=== PATIENT | female | born 2000 | race Two or more races ===

== ENCOUNTER 2021-03-04 01:16 | Emergency (ER) | payer OTHER ==
[~2021-03-04] VITALS: Ht 154.9 cm; Wt 77.6 kg
--- NOTE | 2021-03-04 01:28 | NUR ---
Patient ambulated to ER with c/o mechanical fall at work 2 hours [employer]. Patient states she has pain on whole left side of body, PL:05/26. A/O x4, no SOB or labored breathing. Afebrile. No c/o chest pain/pressure. Denies any GI/ distress.
--- NOTE | 2021-03-04 01:31 | NUR ---
Josh Bejarano at bedside, MSE in progress.
[2021-03-04] MEDS ORDERED: ONDANSETRON ODT 4 MG TAB.RAPDIS ONE (01:43)
[2021-03-04] MEDS ORDERED: HYDROCODONE/APAP 5-325MG TABLET ONE (01:43)
[2021-03-04] MEDS ORDERED: ONDANSETRON ODT 4 MG TAB.RAPDIS SL ONE (01:45)
[2021-03-04] MEDS ORDERED: HYDROCODONE/APAP 5-325MG TABLET PO ONE (01:45)
--- NOTE | 2021-03-04 01:50 | NUR ---
Pt being taken down for xray.
--- NOTE | 2021-03-04 02:15 | NUR ---
Pt returned from xray, stable condition.
[2021-03-04] MEDS ORDERED: HYDR-4209 PO (02:36)
--- NOTE | 2021-03-04 02:44 | NUR ---
Patient discharged to home in stable condition. A/O x4, no SOB or labored breathing. Afebrile. NO c/o pain, medications noted to be effective. Written and verbal after care instructions given. Patient verbalizes understanding of instructions. Stressed follow up or return to ER for worsening s/s. Steady gait. Picked up by family member.
[2021-03-04 02:46] VITALS: BP 119/69
== END 2021-03-04 02:47 | disposition home or self-care (01) ==
LOC: ER 01:21
DX: S20.212A Contusion of left front wall of thorax, initial encounter (principal); S70.02XA Contusion of left hip, initial encounter; S50.12XA Contusion of left forearm, initial encounter; W01.0XXA Fall on same level from slipping, tripping and stumbling without subsequent striking against object, initial encounter; Y92.511 Restaurant or cafe as the place of occurrence of the external cause; Y99.0 Civilian activity done for income or pay; J45.909 Unspecified asthma, uncomplicated
CPT/HCPCS: 71101; 72170; 73090; A4663; Q0162